=== PATIENT | female | born 1965 | race Caucasian/White ===

== ENCOUNTER → 2024-03-22 | Outpatient (CLI) | payer MEDICAID ==
[~2024-03-22] VITALS: Ht 162.6 cm; Wt 90.7 kg
[~2024-03-22] MED LIST: ESCI20TA39 PO; ESTR1TAB19 PO; PANT-47 PO; SIMV-42 PO; TRIA1TAB5 PO
[2024-03-22 15:10] VITALS: PULSE 53; RESP 16; O2SAT 97
[2024-03-22] MEDS: albuterol 2.5 MG/3 ML nebule NEB PRN (15:12)
== END | disposition home or self-care (01) ==
LOC: RT 14:08
PROVIDERS: ATTEND Internal Medicine Cardiovascular Disease
DX: Z79.899 Other long term (current) drug therapy (principal)
CPT/HCPCS: 94010; 94727; 94729; 94760